=== PATIENT | male | born 1960 | race Caucasian/White ===

== ENCOUNTER 2018-10-12 01:43 | Outpatient (CLI) | payer BC, SELFPAY ==
[2018-10-12 11:21] LABS: Calculated LDL 50 mg/dL; Cholesterol 112 mg/dL (50-200); Glucose 106 mg/dL (70-100); HDL Cholesterol 38 mg/dL (40-60); Triglyceride 123 mg/dL (30-150)
== END 2018-10-12 02:03 ==
PROVIDERS: PCP Family Medicine; Visit Provider Family Medicine
DX: Z13.220 Encounter for screening for lipoid disorders (principal); R73.02 Impaired glucose tolerance (oral)
CPT/HCPCS: 36415; 80061; 82947; 83721

== ENCOUNTER 2019-10-02 01:55 | Outpatient (CLI) | payer BC, SELFPAY ==
[2019-10-02 12:45] LABS: Calculated LDL 46 mg/dL (<100); Cholesterol 121 mg/dL (<200); HDL Cholesterol 40 mg/dL (40-60); Triglyceride 175 mg/dL (<150)
[2019-10-02 12:50] LABS: Hemoglobin A1C 5.6 % (3.8-5.6)
== END 2019-10-02 02:15 ==
PROVIDERS: PCP Family Medicine; Visit Provider Family Medicine
DX: E78.5 Hyperlipidemia, unspecified (principal); R73.9 Hyperglycemia, unspecified
CPT/HCPCS: 36415; 80061; 83036

== ENCOUNTER 2020-05-09 02:34 | Outpatient (CLI) | payer BC, SELFPAY ==
[2020-05-10 13:42] LABS: COVID-19 RT-PCR UVMMC Result Negative (Negative)
== END 2020-05-09 02:35 | disposition home or self-care (01) ==
LOC: LBO 02:34
PROVIDERS: PCP Family Medicine; Visit Provider Family Medicine
DX: Z20.822 Contact with and (suspected) exposure to COVID-19 (principal)
CPT/HCPCS: U0003

== ENCOUNTER 2020-05-29 03:18 | Outpatient (CLI) | payer BC, SELFPAY ==
[2020-05-30 13:18] LABS: COVID-19 RT-PCR UVMMC Result Negative (Negative)
== END 2020-05-29 03:19 | disposition home or self-care (01) ==
LOC: LBO 03:18
PROVIDERS: PCP Family Medicine; Visit Provider Family Medicine
DX: Z20.822 Contact with and (suspected) exposure to COVID-19 (principal)
CPT/HCPCS: U0003

== ENCOUNTER 2021-09-29 03:02 | Outpatient (CLI) | payer BC, SELFPAY ==
[2021-09-29 13:01] LABS: Hemoglobin A1C 5.8 % (<5.7)
[2021-09-29 13:28] LABS: Calculated LDL 31 mg/dL (<100); Cholesterol 100 mg/dL (<200); HDL Cholesterol 58 mg/dL (40-60); Triglyceride 58 mg/dL (<150)
[2021-09-29 23:12] LABS: PSA, Screening 0.4 ng/mL (<=4.5)
== END 2021-09-29 03:03 | disposition home or self-care (01) ==
LOC: LOS 03:02
PROVIDERS: PCP Family Medicine; Visit Provider Family Medicine
DX: E11.9 Type 2 diabetes mellitus without complications (principal); E78.5 Hyperlipidemia, unspecified; Z12.5 Encounter for screening for malignant neoplasm of prostate
CPT/HCPCS: 36415; 80061; 84153; 83036

== ENCOUNTER 2021-11-03 09:58 | Outpatient (CLI) | payer BC, SELFPAY ==
--- NOTE | 2021-11-03 09:45 | RT.EKG_ITS ---
APPROVED REPORT Exam: Resting ECG Reason for Exam: CAD Patient Location: O HR:78 bpm ECG Measurements Heart Rate 78 AXIS MD 136 P 71 QRSd 91 QRS 53 QT 391 T 32 QTc 446 Conclusion Sinus rhythm...normal P axis, V-rate 50- 99 Normal Electrocardiogram
== END 2021-11-03 09:59 | disposition home or self-care (01) ==
LOC: DI.CARD 09:59
PROVIDERS: PCP Family Medicine; Visit Provider Internal Medicine Cardiovascular Disease
DX: I25.10 Atherosclerotic heart disease of native coronary artery without angina pectoris (principal)
CPT/HCPCS: 93010

== ENCOUNTER 2022-05-31 11:19 | Emergency (ER) | payer BC, SELFPAY ==
[2022-05-31] VITALS (36 sets, daily range): BP systolic 103–159; BP diastolic 70–92; PULSE 78–98; RESP 9–21; O2SAT 90–98
--- NOTE | 2022-05-31 11:15 | DI.CT_ITS ---
Exam(s) CT HEAD CERVICAL SPINE WO EXAM: CT HEAD CERVICAL SPINE WO CLINICAL HISTORY: fall from roof, altered. TECHNIQUE: Imaging Protocol: Axial computed tomography images with coronal and sagittal reformatted images were created and reviewed COMPARISON: No exams were available for comparison FINDINGS: Head CT Ventricles and Extra axial spaces: Normal in size and morphology for the patient's age. Hemorrhage: None. Cerebral parenchyma: Normal. Midline shift: None. Brainstem/Cerebellum: Normal. Calvarium: Normal. Visualized Paranasal sinuses/Mastoids: Clear. Cervical Spine CT BONES: Vertebral body heights are maintained. Alignment is normal. There is no evidence of acute frac ture. Mild degenerative disc changes and facet degenerative changes are seen . SOFT TISSUES: No paraspinal hematoma. The airway appears intact. No pneumothorax is seen at the lung apices. IMPRESSION: Head CT: No acute abnormality. C-spine CT: Mild degenerative changes, no acute abnormality. RADIATION DOSE DELIVERED: 1,857.64mGy.cm Total DLP DATA REPOSITORY: All CT scans at this facility are submitted to the National Radiology Data Registry (NRDR) Dose Index Registry (DIR) with the [employer] (A[employer]). RADIATION OPTIMIZATION: All CT scans at this facility use at least one of these dose optimization te chniques: automated exposure control; mA and/or kV adjustment per patient size (includes targeted exa ms where dose is matched to clinical indication); or iterative reconstruction.
--- NOTE | 2022-05-31 11:15 | DI.CT_ITS ---
Exam(s) CT CHEST/ABD/PEL W CT THORACIC LUMBAR SPINE REC EXAM: CT CHEST/ABD/PEL W CLINICAL HISTORY: trauma, fall from roof, T7/8 tender. TECHNIQUE: Imaging Protocol: Axial computed tomography images with coronal and sagittal reformatted images were created and reviewed CONTRAST MATERIAL: Intravenous: Omnipaque 350 Contrast volume:100 ml Oral: / no COMPARISON: CT CT THORACIC LUMBAR SPINE REC from 05/31/2022 FINDINGS: CHEST: Tracheobronchial tree: Patent where visualized. Pulmonary parenchyma: Expiratory changes. Mild respiratory motion. No consolidation or dominant measu rable mass. Pleura: No effusion or pneumothorax. Lymph nodes: Within normal limits. Aorta: Thoracic portion non-dilated. Heart: CT thoracic spine: Axial, coronal and sagittal images were reconstructed from the chest CT. Bones are unremarkable for age. No lytic or blastic lesions.No compression fractures. ABDOMEN: Liver: Mildly enlarged. Mild hepatic steatosis. No measurable mass. Gallbladder and biliary tract: No radiodense calculus or dilation. Pancreas: Normal density, no abnormal calcifications or inflammatory process. Spleen: Normal. Kidneys: Normal size, contour and axis. No radiodense stones or obstructive uropathy. No suspicious m asses seen. Adrenal glands: No masses seen. Aorta: Abdominal portion non-dilated. Lymph nodes: Within normal limits. Soft tissues: Unremarkable. PELVIS: Bladder: Symmetric distention. Mild wall thickening. Bowel: No obstruction or bowel wall thickening. Peritoneal cavity: No ascites, collection or mesenteric inflammatory response. Bones: No pelvic or hip fracture. Reproductive organs: Within normal limits. CT lumbar spine: Images were reconstructed from abdomen pelvic CT. There is a fracture seen extendin g through the anterior portion of the superior endplate of T12 with minimal compression. Fracture do es not involve the posterior portion of the vertebral body. No additional fractures are seen. Poste rior elements appear intact. No paraspinal hematoma. IMPRESSION: Fracture at the anterior superior endplate of T12. No additional abnormalities identified. RADIATION DOSE DELIVERED: Total DLP DATA REPOSITORY: All CT scans at this facility are submitted to the National Radiology Data Registry (NRDR) Dose Index Registry (DIR) with the [employer] (ACR). RADIATION OPTIMIZATION: All CT scans at this facility use at least one of these dose optimization te chniques: automated exposure control; mA and/or kV adjustment per patient size (includes targeted exa ms where dose is matched to clinical indication); or iterative reconstruction.
[2022-05-31 11:42] LABS: Abs Immature Grans 0.21 10^3/uL (0.0-0.06); Absolute Basophil Count 0.05 10^3/uL (0.0-0.2); Absolute Eosinophil Count 0.12 10^3/uL (0.0-0.7); Absolute Lymphocyte Count 2.54 10^3/uL (1.2-3.4); Absolute Monocyte Count 0.71 10^3/uL (0.1-0.8); Absolute Neutrophil Count 4.73 10^3/uL (1.2-6.7); Basophils % 0.6; Eosinophils % 1.4; HCT 40.8 % (40.0-50.0); HGB 14.4 g/dL (13.5-17.5); Immature Grans % 2.5; Lymphocytes % 30.4; MCH 30.9 pg (27.0-33.0); MCHC 35.3 % (32.0-36.0); MCV 88 fL (80-95); Monocytes % 8.5; Neutrophils % 56.6; Platelet Count 273 10^3/uL (130-400); RBC 4.66 10^6/uL (4.36-5.78); RDW 12.8 % (11.8-14.1); RDW-SD 40.5 fL; WBC 8.36 10^3/uL (4.4-10.8)
[2022-05-31] MEDS: Normal Saline Flush 10 ML SYR IVP (11:44)
[2022-05-31] MEDS: Omnipaque 350 MG/ML 100 ML BTL IJ (11:44)
[2022-05-31] MEDS: Normal Saline - Diluent 50 ML VIAL IJ (11:44)
[2022-05-31 11:55] LABS: Prothrombin Time 10.2 sec (9.3-11.0)
[2022-05-31 12:02] LABS: ALT 49 U/L (16-63); AST 35 U/L (15-37); Albumin 3.7 g/dL (3.4-5.0); Alkaline Phosphatase 73 U/L (46-116); Anion Gap 10.4 mmol/L (3-11); BUN 16 mg/dL (7-18); Bilirubin, Total 0.6 mg/dL (0.2-1.0); CO2 25.6 mmol/L (21.0-32.0); CREATININE 1.4 mg/dL (0.70-1.30); Chloride 102 mmol/L (98-107); Estimated GFR 56.48 (mL/min/1.73m2); Glucose 147 mg/dL (74-106); Potassium 3.9 mmol/L (3.5-5.1); Sodium 138 mmol/L (136-145); Troponin I < 50 ng/L (<or=60)
[2022-05-31 12:03] LABS: ETHANOL BLOOD < 3.0 mg/dL (<10)
--- NOTE | 2022-05-31 12:22 | DI.VRAD_ITS ---
PROCEDURE INFORMATION: Exam: CT Head Without Contrast Exam date and time: 05/31/2022 10:41 AM Age: 61 years old Clinical indication: Injury or trauma; Fall; Blunt trauma (contusions or hematomas); Consciousness not specified; Injury details: Fell off roof TECHNIQUE: Imaging protocol: Computed tomography of the head without contrast. Radiation optimization: All CT scans at this facility use at least one of these dose optimization techniques: automated exposure control; mA and/or kV adjustment per patient size (includes targeted exams where dose is matched to clinical indication); or iterative reconstruction. COMPARISON: No relevant prior studies available. FINDINGS: Brain: No acute hemorrhage or acute territorial infarct. Diffuse involutional changes with white matter hypodensities suggestive of small vessel disease. No midline shift or mass effect. Cerebral ventricles: Prominent ventricles, proportional to volume loss. Paranasal sinuses: Visualized sinuses are unremarkable. No fluid levels. Molar extruded into the right maxillary sinus. Mastoid air cells: Visualized mastoid air cells are well aerated. Bones/joints: No acute fracture. Soft tissues: No acute changes Vasculature: The vasculature demonstrates atherosclerotic calcification. IMPRESSION: 1. No significant acute abnormality identified. 2. Note that early ischemic change can be occult on CT. If concern persists, consider MRI or CTA. PROCEDURE INFORMATION: Exam: CT Cervical Spine Without Contrast Exam date and time: 05/31/2022 10:41 AM Age: 61 years old Clinical indication: Injury or trauma; Fall; Blunt trauma (contusions or hematomas); Consciousness not specified; Injury details: Fell off roof TECHNIQUE: Imaging protocol: Computed tomography of the cervical spine without contrast. Radiation optimization: All CT scans at this facility use at least one of these dose optimization techniques: automated exposure control; mA and/or kV adjustment per patient size (includes targeted exams where dose is matched to clinical indication); or iterative reconstruction. COMPARISON: US AAA SCREENING 01/29/2021 8:15 AM FINDINGS: Straightening of the cervical lordosis. The vertebral body heights are preserved. No detectable acute fracture or malalignment. No aggressive bone lesion is identified. No significant degenerative change. No significant soft tissue abnormality. Parenchymal changes within the partially imaged lung apices. IMPRESSION: 1. No cervical spine fracture seen. Straightening of cervical lordosis and degenerative change. 2. Parenchymal changes within the partially imaged lung apices. See pending dedicated chest CT. Dictated and Authenticated by: Marya Hurst MD. Ordering:FAY Kapoor MD
--- NOTE | 2022-05-31 12:26 | DI.VRAD_ITS ---
PROCEDURE INFORMATION: Exam: CT Thoracic Spine With Contrast Exam date and time: 05/31/2022 10:49 AM Age: 61 years old Clinical indication: Other: Trauma, fall from roof, t7-8 tender TECHNIQUE: Imaging protocol: Computed tomography of the thoracic spine with contrast. Radiation optimization: All CT scans at this facility use at least one of these dose optimization techniques: automated exposure control; mA and/or kV adjustment per patient size (includes targeted exams where dose is matched to clinical indication); or iterative reconstruction. COMPARISON: CT HEAD CERVICAL SPINE WO 05/31/2022 10:41 AM FINDINGS: Bones/joints: Acute comminuted minimally displaced fracture of the superior endplate of T12. Series 11, image 64 and coronal series 10 image 47. Axial series 5, image 591 and adjacent images. Soft tissues: Unremarkable. IMPRESSION: Acute comminuted minimally displaced fracture of the superior endplate of T12. Series 11, image 64 and coronal series 10 image 47. Axial series 5, image 591 and adjacent images. PROCEDURE INFORMATION: Exam: CT Lumbar Spine With Contrast Exam date and time: 05/31/2022 10:49 AM Age: 61 years old Clinical indication: Other: Trauma, fall from roof, t7-8 tender TECHNIQUE: Imaging protocol: Computed tomography of the lumbar spine with contrast. Radiation optimization: All CT scans at this facility use at least one of these dose optimization techniques: automated exposure control; mA and/or kV adjustment per patient size (includes targeted exams where dose is matched to clinical indication); or iterative reconstruction. COMPARISON: US AAA SCREENING 01/29/2021 8:15 AM FINDINGS: Bones/joints: There is no evidence of acute fracture.There is no evidence of malalignment or dislocation. Soft tissues: Unremarkable. IMPRESSION: There is no evidence of acute fracture.There is no evidence of malalignment or dislocation. Dictated and Authenticated by: Nan Hu MD. Ordering:FAY Kapoor MD
--- NOTE | 2022-05-31 12:46 | ED.GENADUL_ITS ---
Discharge Plan Disposition Patient Disposition: Transfer-Acute Inpatient Care Specific Acute Inpt Facility: [facility] Condition: Serious Discharge Details Clinical Impression: Closed T12 spinal fracture, Fall from roof, Laceration of scalp Primary Care Provider: Stiven Aguilar ED Provider: Antwon Kim Home Meds and New Rx's Prescriptions: No Action atorvastatin 20 mg tablet 20 mg PO QPM Qty: 90 3RF aspirin [Aspir-Low] 81 MG tablet,delayed release (DR/EC) 81 mg PO DAILY nitroglycerin 0.4 mg tablet, sublingual 0.4 mg Sublingual q 5mins MDD 3 tabs PRN (Reason: chest pain) Qty: 25 0RF ibuprofen [Advil] 200 MG tablet 1 tab PO PRN PRN Discharge Data Discharge Date/Time-TO BE ENTERED AT DEPARTURE: 05/31/22 14:49 Medical Decision Making 61-year-old male with history of coronary artery disease here after fall from roof with loss of consciousness. Patient is complaining of mid back pain. He is tender lower thoracic spine. Patient is hemodynamically stable. Airway intact. Patient neurologically intact distally. Patient does have laceration of his occipital scalp. No active bleeding. Concern for acute life-threatening traumatic injury including intracranial hemorrhage, spinal fracture, intra-abdominal or intrathoracic bleeding. Plan to obtain CT imaging of the head, neck, chest abdomen pelvis with spinal reconstruction. 1255 --CT is reviewed by radiology and injury identified: Acute comminuted minimally displaced T12 fracture. I called [facility] to request transfer. Awaiting callback. -- Patient having significant spinal pain. I will administer Dilaudid 1 mg IV. 1307 --I spoke with Dr. Stephenson at [facility] trauma, discussed ED presentation and course, he will except the patient in transfer as a trauma alert. He recommends maintaining spinal precaution and c-collar for transport. -- Tetanus up-to-date 2016 per nursing. Laceration was explored and does not involve galea. Laceration repaired with primary closure. Attempted with staple and wound border would not lie flat. Wound was sutured without complication. Medical Records Medical records reviewed: Yes I reviewed the patient's medical records. Medical records narrative: CT of the head interpreted by radiology: No significant acute abnormality identified. Bones noted to have no acute fractures. Brain noted to have no acute hemorrhage. CT of the cervical spine interpreted by radiology: No cervical spine fracture. Straightening of cervical lordosis and degenerative change. Parenchymal changes within the partially imaged lung apices. CT of the chest interpreted by radiology: FINDINGS: Lungs: Bibasilar atelectasis Pleural spaces: Unremarkable. No pneumothorax. No pleural effusion. Heart: Unremarkable. No cardiomegaly. No pericardial effusion. Lymph nodes: Unremarkable. No enlarged lymph nodes. Vasculature: Unremarkable. No aortic aneurysm.? Bones/joints: Acute Comminuted minimally displaced fracture of the superior endplate of T12. Series 5, image 597. Series 11, image 64. Soft tissues: Unremarkable. IMPRESSION: Acute Comminuted minimally displaced fracture of the superior endplate of T12. Series 5, image 597. Series 11, image 64. CT of the abdomen pelvis interpreted by radiology: FINDINGS: Liver: Normal. No mass. Gallbladder and bile ducts: Normal. No calcified stones. No ductal dilation. Pancreas: Normal. No ductal dilation. Spleen: Normal. No splenomegaly. Adrenal glands: Normal. No mass. Kidneys and ureters: Normal. No hydronephrosis. Stomach and bowel: Unremarkable. No obstruction. No mucosal thickening. Appendix: Normal appendix Intraperitoneal space: Unremarkable. No free air. No significant fluid collection. Vasculature: Unremarkable. No abdominal aortic aneurysm. Lymph nodes: Unremarkable. No enlarged lymph nodes. Urinary bladder: Unremarkable as visualized. Reproductive: Unremarkable as visualized. Bones/joints: Unremarkable. No acute fracture. Soft tissues: Unremarkable. IMPRESSION: Mild T12 compression fracture is acute. See CT chest report Lab Data Lab results reviewed: Yes I reviewed the patient's lab results. Labs: Laboratory Tests Range/Units 05/31/22 05/31/22 05/31/22 11:30 11:30 11:30 WBC (4.4-10.8) 10^3/uL 8.36 RBC (4.36-5.78) 10^6/uL 4.66 Hgb (13.5-17.5) g/dL 14.4 Hct (40.0-50.0) % 40.8 MCV (80-95) fL 88 MCH (27.0-33.0) pg 30.9 MCHC (32.0-36.0) % 35.3 RDW (11.8-14.1) % 12.8 Plt Count (130-400) 10^3/uL 273 MPV (8.0-11.0) fL 10.0 Immature Gran % 2.5 Neutrophils % 56.6 Lymphocytes % 30.4 Monocytes % 8.5 Eosinophils % 1.4 Basophils % 0.6 Nucleated RBC % (0.0-0.3) % 0.0 Absolute Neutrophils (1.2-6.7) 10^3/uL 4.73 Absolute Lymphocytes (1.2-3.4) 10^3/uL 2.54 Absolute Monocytes (0.1-0.8) 10^3/uL 0.71 Absolute Eosinophils (0.0-0.7) 10^3/uL 0.12 Absolute Basophils (0.0-0.2) 10^3/uL 0.05 PT (9.3-11.0) sec 10.2 INR (0.9-1.1) 1.0 Sodium (136-145) mmol/L 138 Potassium (3.5-5.1) mmol/L 3.9 Chloride (98-107) mmol/L 102 Carbon Dioxide (21.0-32.0) mmol/L 25.6 Anion Gap (3-11) mmol/L 10.4 BUN (7-18) mg/dL 16 Creatinine (0.70-1.30) mg/dL 1.4 H Est GFR (CKD-EPI 2020) (mL/min/1.73m2) 56.48 Glucose (74-106) mg/dL 147 H Calcium (8.5-10.1) mg/dL 9.0 Total Bilirubin (0.2-1.0) mg/dL 0.6 AST (15-37) U/L 35 ALT (16-63) U/L 49 Alkaline Phosphatase (46-116) U/L 73 Troponin I (<or=60) ng/L < 50 Total Protein (6.4-8.2) g/dL 8.0 Albumin (3.4-5.0) g/dL 3.7 Ethyl Alcohol (<10) mg/dL < 3.0 Patient ABO/Rh Antibody Screen Range/Units 05/31/22 11:30 WBC (4.4-10.8) 10^3/uL RBC (4.36-5.78) 10^6/uL Hgb (13.5-17.5) g/dL Hct (40.0-50.0) % MCV (80-95) fL MCH (27.0-33.0) pg MCHC (32.0-36.0) % RDW (11.8-14.1) % Plt Count (130-400) 10^3/uL MPV (8.0-11.0) fL Immature Gran % Neutrophils % Lymphocytes % Monocytes % Eosinophils % Basophils % Nucleated RBC % (0.0-0.3) % Absolute Neutrophils (1.2-6.7) 10^3/uL Absolute Lymphocytes (1.2-3.4) 10^3/uL Absolute Monocytes (0.1-0.8) 10^3/uL Absolute Eosinophils (0.0-0.7) 10^3/uL Absolute Basophils (0.0-0.2) 10^3/uL PT (9.3-11.0) sec INR (0.9-1.1) Sodium (136-145) mmol/L Potassium (3.5-5.1) mmol/L Chloride (98-107) mmol/L Carbon Dioxide (21.0-32.0) mmol/L Anion Gap (3-11) mmol/L BUN (7-18) mg/dL Creatinine (0.70-1.30) mg/dL Est GFR (CKD-EPI 2020) (mL/min/1.73m2) Glucose (74-106) mg/dL Calcium (8.5-10.1) mg/dL Total Bilirubin (0.2-1.0) mg/dL AST (15-37) U/L ALT (16-63) U/L Alkaline Phosphatase (46-116) U/L Troponin I (<or=60) ng/L Total Protein (6.4-8.2) g/dL Albumin (3.4-5.0) g/dL Ethyl Alcohol (<10) mg/dL Patient ABO/Rh A Positive Antibody Screen NEGATIVE HPI General Mode of arrival: EMS . Date/Time Provider Initiated Documentation: 05/31/22 11:27 . Limitations to Documentation: no limitations . Information obtained by: EMS . HPI Narrative: 61yo male here after fall from single story roof down ladder. History and ROS limited secondary to no recollection of fall. Patient did hit his head and sustained laceration. His chief complaint is mid to low back pain that is moderate. Related Data Home Medications Medication Instructions Recorded Confirmed ibuprofen 200 mg tablet (Advil) 1 tab PO PRN PRN 06/24/14 05/31/22 aspirin 81 mg tablet,delayed 81 mg PO DAILY 10/15/17 05/31/22 release (Aspir-Low) nitroglycerin 0.4 mg sublingual 0.4 mg sublingual q 5mins PRN 09/25/21 05/31/22 tablet chest pain #25 tab-caps atorvastatin 20 mg tablet 20 mg PO QPM #90 tabs 11/05/21 05/31/22 Previous Rx's Medication Instructions Recorded nitroglycerin 0.4 mg sublingual 0.4 mg sublingual q 5mins PRN 09/25/21 tablet chest pain #25 tab-caps atorvastatin 20 mg tablet 20 mg PO QPM #90 tabs 11/05/21 Allergies Allergy/AdvReac Type Severity Reaction Status Date / Time No Known Allergies Allergy Verified 05/31/22 11:26 General Stated Complaint: Trauma TAMARA: 2 PFSH All Active Problems (Updated 05/31/22 @ 13:09 by Antwon Kim MD) Closed T12 spinal fracture (Acute) Fall from roof (Acute) Laceration of scalp (Acute) CAD (coronary artery disease) (Chronic) Well adult exam (Acute) continue to work on weight with attention to diet and exercise Family history of diabetes mellitus (Acute 01/26/13) History of knee surgery (Acute) Knee pain (Acute 01/26/13) Coronary arteriosclerosis (Acute 08/27/14) LA 2014 with stent to RCA Glucose intolerance (impaired glucose tolerance) (Acute 10/11/15) Surgical History cardiac stent KNEE SURGERY LEFT Family History Father , 79 Essential hypertension Diabetes Sister Stroke Grandfather Heart disease Grandfather Heart disease Grandmother Neoplasm Brother Alcohol abuse Sister Substance abuse Sister Stroke Social History (Updated 11/06/21 @ 08:42 by Mei Romo) Smoking/Tobacco Use Status: Former Tobacco Use tobacco type: cigarettes Tobacco: How many years used: 14 Second Hand Exposure: No Smoking risk assessment performed?: Yes Alcohol Intake: current Alcohol Intake frequency: holidays/special occasions only Alcohol type: hard liquor Drug use: Never Caregiver/Support person: No Household members: spouse Housing: house Communication Needs: None current occupation: owns [employer] Pets and animals: Yes Pets and animals: cat(s) Sexually active: Yes Do you think of yourself as: straight/heterosexual Current gender identity: male What is your relationship status?: How often do you talk on the phone with friends or family?: once per week How often do you get together with friends or relatives?: three or more times per week How often do you attend hoahaoism or christianity services?: 1-3 times per year Do you belong to any clubs or organized social groups?: no Panel score (0-1 are the most socially isolated patients): 2 What type of physical activity do you participate in: none Special nemesio needs: No Seatbelt use: sometimes Drive intox or ride w/intox commercial collections driver: No Do you feel safe at home: Yes Do you feel safe in your relationship?: Yes Exam Const General: cooperative and no acute distress HENMT Mouth: moist mucous membranes Eyes EOM: EOM intact bilaterally Neck Neck: trachea midline Resp Auscultation: clear to auscultation bilaterally, no rales, no rhonchi and no wheezes Cardio Rate: regular rate and not tachycardic Rhythm: regular rhythm GI Palpation: soft, not firm, no guarding, no masses, not rigid and nontender Back/Spine/Pelvis Cervical Spine: collar present and No cervical spinal tenderness Thoracic/Lumbar Spine: thoracic spinal tenderness (low thoracic) and No lumbar spinal tenderness Skin General skin exam: no rashes or lesions noted Neuro General: patient alert, patient awake, patient oriented x3 and tone normal Cognition: abnormal cognition (does not know day of week) Speech: speech normal Other: distal LE sensation and motor intact Extrem General: no edema Psych Appearance: grossly normal Mental Status: mental status grossly normal Course Vital Signs Vital signs: Vital Signs Pulse Oximetry 94 05/31/22 11:16 Pulse 81 05/31/22 12:31 Pulse 84 05/31/22 12:31 Respiratory Rate 10 L 05/31/22 12:31 Respiratory Effort Normal 05/31/22 11:58 Respiratory Pattern Normal 05/31/22 11:58 Blood Pressure 124/87 05/31/22 12:31 Blood Pressure Mean 96 05/31/22 12:31 Blood Pressure Position Supine 05/31/22 11:17 Pulse Oximetry 96 05/31/22 12:31 Oxygen Delivery Method Nasal Cannula 05/31/22 12:00 Oxygen Flow Rate 1 05/31/22 12:00 Pain Level 5 05/31/22 11:17 Lab/Test Results Lab/Test Results: Laboratory Tests Range/Units 05/31/22 05/31/22 05/31/22 11:30 11:30 11:30 WBC (4.4-10.8) 10^3/uL 8.36 RBC (4.36-5.78) 10^6/uL 4.66 Hgb (13.5-17.5) g/dL 14.4 Hct (40.0-50.0) % 40.8 MCV (80-95) fL 88 MCH (27.0-33.0) pg 30.9 MCHC (32.0-36.0) % 35.3 RDW (11.8-14.1) % 12.8 Plt Count (130-400) 10^3/uL 273 MPV (8.0-11.0) fL 10.0 Immature Gran % 2.5 Neutrophils % 56.6 Lymphocytes % 30.4 Monocytes % 8.5 Eosinophils % 1.4 Basophils % 0.6 Nucleated RBC % (0.0-0.3) % 0.0 Absolute Neutrophils (1.2-6.7) 10^3/uL 4.73 Absolute Lymphocytes (1.2-3.4) 10^3/uL 2.54 Absolute Monocytes (0.1-0.8) 10^3/uL 0.71 Absolute Eosinophils (0.0-0.7) 10^3/uL 0.12 Absolute Basophils (0.0-0.2) 10^3/uL 0.05 PT (9.3-11.0) sec 10.2 INR (0.9-1.1) 1.0 Sodium (136-145) mmol/L 138 Potassium (3.5-5.1) mmol/L 3.9 Chloride (98-107) mmol/L 102 Carbon Dioxide (21.0-32.0) mmol/L 25.6 Anion Gap (3-11) mmol/L 10.4 BUN (7-18) mg/dL 16 Creatinine (0.70-1.30) mg/dL 1.4 H Est GFR (CKD-EPI 2020) (mL/min/1.73m2) 56.48 Glucose (74-106) mg/dL 147 H Calcium (8.5-10.1) mg/dL 9.0 Total Bilirubin (0.2-1.0) mg/dL 0.6 AST (15-37) U/L 35 ALT (16-63) U/L 49 Alkaline Phosphatase (46-116) U/L 73 Troponin I (<or=60) ng/L < 50 Total Protein (6.4-8.2) g/dL 8.0 Albumin (3.4-5.0) g/dL 3.7 Ethyl Alcohol (<10) mg/dL < 3.0 Patient ABO/Rh Antibody Screen Range/Units 05/31/22 11:30 WBC (4.4-10.8) 10^3/uL RBC (4.36-5.78) 10^6/uL Hgb (13.5-17.5) g/dL Hct (40.0-50.0) % MCV (80-95) fL MCH (27.0-33.0) pg MCHC (32.0-36.0) % RDW (11.8-14.1) % Plt Count (130-400) 10^3/uL MPV (8.0-11.0) fL Immature Gran % Neutrophils % Lymphocytes % Monocytes % Eosinophils % Basophils % Nucleated RBC % (0.0-0.3) % Absolute Neutrophils (1.2-6.7) 10^3/uL Absolute Lymphocytes (1.2-3.4) 10^3/uL Absolute Monocytes (0.1-0.8) 10^3/uL Absolute Eosinophils (0.0-0.7) 10^3/uL Absolute Basophils (0.0-0.2) 10^3/uL PT (9.3-11.0) sec INR (0.9-1.1) Sodium (136-145) mmol/L Potassium (3.5-5.1) mmol/L Chloride (98-107) mmol/L Carbon Dioxide (21.0-32.0) mmol/L Anion Gap (3-11) mmol/L BUN (7-18) mg/dL Creatinine (0.70-1.30) mg/dL Est GFR (CKD-EPI 2020) (mL/min/1.73m2) Glucose (74-106) mg/dL Calcium (8.5-10.1) mg/dL Total Bilirubin (0.2-1.0) mg/dL AST (15-37) U/L ALT (16-63) U/L Alkaline Phosphatase (46-116) U/L Troponin I (<or=60) ng/L Total Protein (6.4-8.2) g/dL Albumin (3.4-5.0) g/dL Ethyl Alcohol (<10) mg/dL Patient ABO/Rh A Positive Antibody Screen NEGATIVE Procedures Laceration Laceration 1: Site: scalp Size (cm): 3 Description: linear Depth: simple, single layer Local Anesthetic: other anesthetic (LET) Pre-repair: wound explored Skin layer closed with: nylon Size (cm): 4-0 Number of sutures: 5 Technique: simple, interrupted
[2022-05-31] MEDS: HYDROmorphone 2 MG/ML SYR 1 MG IVP ×2 (12:55→14:50)
[2022-05-31] MEDS: Lidocaine/Epinephri/Tetracaine Topical Gel 3 ML TP (12:56)
--- NOTE | 2022-05-31 13:00 | RT.EKG_ITS ---
APPROVED REPORT Exam: Resting ECG Reason for Exam: trauma Patient Location: E HR:85 bpm ECG Measurements Heart Rate 85 AXIS [place] 156 P 79 QRSd 100 QRS 68 QT 382 T 33 QTc 455 Conclusion Sinus rhythm...normal P axis, V-rate 60- 99 Probable inferior infarct, old...Q>35mS, II III aVF
== END 2022-05-31 14:49 | disposition short-term general hospital (02) ==
PROVIDERS: Emergency Provider Student in an Organized Health Care Education/Training Program; PCP Family Medicine
DX: S22.089A Unspecified fracture of T11-T12 vertebra, initial encounter for closed fracture (principal); S01.01XA Laceration without foreign body of scalp, initial encounter; I25.10 Atherosclerotic heart disease of native coronary artery without angina pectoris; Z79.82 Long term (current) use of aspirin; Z95.5 Presence of coronary angioplasty implant and graft; W13.2XXA Fall from, out of or through roof, initial encounter
CPT/HCPCS: 12002; 36415; 74177; 80053; 86850; 86900; 86901; 93005; 96374; 96376; 99285; 70450; 71260; 72125; 80320; 84484; 85025; 85610; 93010; J1170; J3490

== ENCOUNTER 2022-10-26 02:52 | Outpatient (CLI) | payer BC, SELFPAY ==
[2022-10-26 12:43] LABS: Calculated LDL 38 mg/dL (<100); Cholesterol 103 mg/dL (<200); HDL Cholesterol 42 mg/dL (40-60); Triglyceride 117 mg/dL (<150)
[2022-10-26 22:46] LABS: PSA, Screening 0.6 ng/mL (<=4.5)
== END 2022-10-26 02:53 | disposition home or self-care (01) ==
LOC: LOS 02:52
PROVIDERS: PCP Family Medicine; Visit Provider Family Medicine
DX: E78.5 Hyperlipidemia, unspecified (principal); Z12.5 Encounter for screening for malignant neoplasm of prostate
CPT/HCPCS: 36415; 80061; 84153

== ENCOUNTER → 2023-11-02 10:46 | Outpatient (BNVA) | payer MEDICARE, SELFPAY | PROVIDERS: PCP Family Medicine; Referring Provider Family Medicine; Visit Provider Internal Medicine Cardiovascular Disease | DX: I25.10 Atherosclerotic heart disease of native coronary artery without angina pectoris (principal) | CPT/HCPCS: 99213 ==

== ENCOUNTER 2024-10-31 07:59 | Outpatient (CLI) | payer MEDICARE, SELFPAY ==
--- NOTE | 2024-10-31 07:45 | RT.EKG_ITS ---
APPROVED REPORT Exam: Resting ECG Reason for Exam: CAD Patient Location: O HR:76 bpm ECG Measurements Heart Rate 76 AXIS NC 146 P 38 QRSd 97 QRS 51 QT 392 T 37 QTc 441 Conclusion Sinus rhythm...normal P axis, V-rate 50- 99 Normal Electrocardiogram
== END 2024-10-31 08:00 | disposition home or self-care (01) ==
LOC: DI.CARD 08:00
PROVIDERS: PCP Family Medicine; Visit Provider Internal Medicine Cardiovascular Disease
DX: I25.10 Atherosclerotic heart disease of native coronary artery without angina pectoris (principal)
CPT/HCPCS: 93010

== ENCOUNTER → 2024-10-31 10:49 | Outpatient (BNVA) | payer MEDICARE, SELFPAY | PROVIDERS: PCP Family Medicine; Referring Provider Family Medicine; Visit Provider Internal Medicine Cardiovascular Disease | DX: I25.10 Atherosclerotic heart disease of native coronary artery without angina pectoris (principal); I10 Essential (primary) hypertension; Z95.5 Presence of coronary angioplasty implant and graft | CPT/HCPCS: 99213; 93005 ==

== ENCOUNTER 2024-11-07 02:11 | Outpatient (CLI) | payer MEDICARE, SELFPAY ==
[2024-11-07 12:54] LABS: Calculated LDL 41 mg/dL (<100); Cholesterol 109 mg/dL (<200); Estimated GFR 74.04 (mL/min/1.73m2); HDL Cholesterol 45 mg/dL (>or=40); Hemoglobin A1C 6.1 % (<5.7); Triglyceride 118 mg/dL (<150)
== END 2024-11-07 02:12 | disposition home or self-care (01) ==
LOC: LOS 02:11
PROVIDERS: PCP Family Medicine; Visit Provider Family Medicine
DX: E11.51 Type 2 diabetes mellitus with diabetic peripheral angiopathy without gangrene (principal); I70.209 Unspecified atherosclerosis of native arteries of extremities, unspecified extremity; E78.5 Hyperlipidemia, unspecified; Z13.220 Encounter for screening for lipoid disorders; I10 Essential (primary) hypertension
CPT/HCPCS: 36415; 80061; 82565; 83036